=== PATIENT | male | born 1960 | race Caucasian/White ===

== ENCOUNTER → 2016-06-01 | Outpatient (CLI) | payer OTHER ==
[~2016-06-01] MED LIST: B12,B-12,B 12500 MC1 PO; CEPHALEXIN500 M1 PO; CLINDAMYCIN HC300 MG PO; DOXYCYCLINE100 M3 PO; HYDROCODONE BIT1 T11 PO; INDOMETHACIN50 MG PO; KEFLEX500 MG PO; NORCO 5-325 TA1 EACH PO; TOPCARE IBUPRO200 MG PO; ULTRAM50 MG PO
== END | disposition home or self-care (01) ==
LOC: RAD 11:25
DX: R06.09 Other forms of dyspnea (principal)

== ENCOUNTER 2016-08-09 23:00 | Emergency (ER) | payer OTHER ==
[~2016-08-09] VITALS: Ht 185.4 cm; Wt 145.1 kg
[2016-08-09] MEDS ORDERED: PROAIR HFA8.5 GM INH (23:26)
[2016-08-09] MEDS ORDERED: TAMSULOSIN HCL0.4 MG PO (23:26)
== END 2016-08-10 00:48 | disposition home or self-care (01) ==
LOC: ED 23:00
DX: M25.562 Pain in left knee (principal); Z79.899 Other long term (current) drug therapy

== ENCOUNTER 2017-01-08 18:37 | Emergency (ER) | payer OTHER ==
[~2017-01-08] VITALS: Ht 185.4 cm; Wt 149.7 kg
[~2017-01-08 18:37] MED LIST changes: +PROAIR HFA8.5 GM INH; +TAMSULOSIN HCL0.4 MG PO
[2017-01-08 19:38] LABS: BASO % 0.3 % (0.0-1.0); HEMATOCRIT 40.4 % (42.0-52.0); HEMOGLOBIN 14.1 g/dl (14.0-18.0); LYMPH # 1.2 10*3/uL (1.3-4.4); LYMPH % 10.4 % (27.0-41.0); MEAN CELL VOLUME 92.7 fl (80.0-94.0); MEAN CORPUSCULAR HGB 32.3 pg (27.0-31.0); MEAN CORPUSCULAR HGB CONC 34.9 g/dl (33.0-37.0); MEAN PLATELET VOLUME 10.8 fl (9.6-12.3); MONO # 0.9 10*3/uL (0.1-1.0); MONO % 7.5 % (3.0-9.0); NEUT # 9.6 10*3/uL (2.3-7.9); NEUT % 81.1 % (47.0-73.0); PLATELET COUNT AUTOMATED 177 10*3/uL (130-400); RED BLOOD COUNT 4.36 10*6/uL (4.50-5.90); RED CELL DISTRI WIDTH 12.8 % (0-14.5); WHITE BLOOD COUNT 11.8 10*3/uL (4.8-10.8)
[2017-01-08 19:53] LABS: BUN 15 mg/dl (7-24)
[2017-01-08 20:24] LABS: ALBUMIN 3.1 gm/dl (3.1-4.5); ALKALINE PHOSPHATASE 66 U/L (45-117); CHLORIDE 92 mmol/L (98-107); CREATININE 1.17 mg/dL (0.70-1.30); POTASSIUM 4.4 mmol/L (3.5-5.1); SGOT/AST 42 IU/L (3-35); SGPT/ALT 30 U/L (12-78); SODIUM 131 mmol/L (136-145); TOTAL PROTEIN 6.9 gm/dL (6.4-8.2)
[2017-01-08] MEDS ORDERED: ZITHROMAX250 MG PO (22:06)
[2017-01-08] MEDS ORDERED: PROAIR HFA8.5 GM INH (22:06)
== END 2017-01-08 22:59 | disposition home or self-care (01) ==
LOC: ED 18:37
PROVIDERS: Physician Assistant
DX: J18.1 Lobar pneumonia, unspecified organism (principal); R51 Headache; R42 Dizziness and giddiness; F17.200 Nicotine dependence, unspecified, uncomplicated; Z79.899 Other long term (current) drug therapy

== ENCOUNTER 2017-01-11 15:53 | Inpatient (IN) | payer OTHER ==
[~2017-01-11] VITALS: Ht 185.4 cm; Wt 148.1 kg
[~2017-01-11 15:53] MED LIST changes: +ZITHROMAX250 MG PO
[2017-01-11 16:00] VITALS: BP 147/77
[2017-01-11 17:09] LABS: BASO % 0.3 % (0.0-1.0); EOS # 0.1 10*3/uL (0.0-0.4); EOS % 0.4 % (1.0-4.0); HEMATOCRIT 39.9 % (42.0-52.0); HEMOGLOBIN 13.8 g/dl (14.0-18.0); LYMPH # 0.7 10*3/uL (1.3-4.4); LYMPH % 4.3 % (27.0-41.0); MEAN CELL VOLUME 92.1 fl (80.0-94.0); MEAN CORPUSCULAR HGB 31.9 pg (27.0-31.0); MEAN CORPUSCULAR HGB CONC 34.6 g/dl (33.0-37.0); MEAN PLATELET VOLUME 11.2 fl (9.6-12.3); MONO # 0.9 10*3/uL (0.1-1.0); MONO % 5.5 % (3.0-9.0); NEUT # 13.9 10*3/uL (2.3-7.9); NEUT % 88.5 % (47.0-73.0); PLATELET COUNT AUTOMATED 222 10*3/uL (130-400); RED BLOOD COUNT 4.33 10*6/uL (4.50-5.90); RED CELL DISTRI WIDTH 12.9 % (0-14.5); WHITE BLOOD COUNT 15.7 10*3/uL (4.8-10.8)
[2017-01-11 17:25] LABS: ALBUMIN 3.6 gm/dl (3.1-4.5); ALKALINE PHOSPHATASE 181 U/L (45-117); BUN 10 mg/dl (7-24); CHLORIDE 104 mmol/L (98-107); CREATININE 0.29 mg/dL (0.70-1.30); POTASSIUM 3.8 mmol/L (3.5-5.1); SGOT/AST 30 IU/L (3-35); SGPT/ALT 21 U/L (12-78); SODIUM 137 mmol/L (136-145); TOTAL PROTEIN 7.3 gm/dL (6.4-8.2)
[2017-01-11 17:41] VITALS: BP 125/80
[2017-01-11 18:14] VITALS: BP 128/65
--- NOTE | 2017-01-11 18:30 | NUR ---
Time: 1829 A 56 year old MALE admitted to 4E under services of ACACIA SAGE DO. Pt. arrived via stretcher from ER. Chief complaint: REDNESS SWELLING AND PAIN RIGHT LOWER LEG SINCE SUNDAY.. TAMMY PORTILLO
--- NOTE | 2017-01-11 19:52 | NUR ---
PRN ZOFRAN IV GIVEN PER PT. REQUEST C/O NAUSEA.
[2017-01-11 20:00] VITALS: BP 121/72
--- NOTE | 2017-01-11 20:10 | NUR ---
PRN ZOFRAN IV EFFECTIVE, PT. NO LONGER C/O NAUSEA.
--- NOTE | 2017-01-11 23:45 | NUR ---
CALLED INTO PT. ROOM FOR IV PULLED OUT ON ACCIDENT. NEW IV INSERTED IN RIGHT HAND WITH 20G TO CONTINUE ATB THERAPY.
[2017-01-12] VITALS: BP 113/51
[2017-01-12 06:51] LABS: BASO % 0.2 % (0.0-1.0); EOS # 0.1 10*3/uL (0.0-0.4); EOS % 0.9 % (1.0-4.0); HEMATOCRIT 35.5 % (42.0-52.0); HEMOGLOBIN 12.1 g/dl (14.0-18.0); LYMPH # 1.2 10*3/uL (1.3-4.4); LYMPH % 10.4 % (27.0-41.0); MEAN CORPUSCULAR HGB 33.1 pg (27.0-31.0); MEAN CORPUSCULAR HGB CONC 34.1 g/dl (33.0-37.0); MEAN PLATELET VOLUME 10.5 fl (9.6-12.3); MONO # 0.7 10*3/uL (0.1-1.0); MONO % 5.8 % (3.0-9.0); NEUT # 9.5 10*3/uL (2.3-7.9); NEUT % 81.9 % (47.0-73.0); PLATELET COUNT AUTOMATED 207 10*3/uL (130-400); RED BLOOD COUNT 3.66 10*6/uL (4.50-5.90); RED CELL DISTRI WIDTH 13.2 % (0-14.5); RETICULOCYTE % 0.96 % (0.50-2.50); WHITE BLOOD COUNT 11.6 10*3/uL (4.8-10.8)
[2017-01-12 07:08] LABS: ALBUMIN 2.1 gm/dl (3.1-4.5); ALKALINE PHOSPHATASE 85 U/L (45-117); CHLORIDE 102 mmol/L (98-107); CHOLESTEROL 95 mg/dL (<200); CREATININE 0.98 mg/dL (0.70-1.30); HDL CHOLESTEROL 19 mg/dl (40-60); IRON 44 ug/dL (65-175); LDL CHOLESTEROL 49 mg/dL (9-159); MAGNESIUM 2.3 mg/dL (1.5-2.1); PHOSPHOROUS 3.4 mg/dL (2.5-4.9); POTASSIUM 3.7 mmol/L (3.5-5.1); SGOT/AST 86 IU/L (3-35); SGPT/ALT 58 U/L (12-78); SODIUM 138 mmol/L (136-145); TOTAL IRON BINDING CAPACITY 198 ug/dl (250-450); TOTAL PROTEIN 6.6 gm/dL (6.4-8.2); TRIGLYCERIDES 133 mg/dl (<150); VLDL CHOLESTEROL 27 mg/dL (6-40)
[2017-01-12 07:22] LABS: BUN 21 mg/dl (7-24)
[2017-01-12 07:28] LABS: VITAMIN D, 25-HYDROXY 25.3 ng/mL (30-100)
[2017-01-12 08:00] VITALS: BP 124/67
[2017-01-12 08:07] LABS: FERRITIN 1938.2 ng/mL (22.0-322.0)
--- NOTE | 2017-01-12 08:30 | NUR ---
Speedboat Operator in to talk to patient. Patient states lives at HOME IN A TRAILOR ALONE with . There are 4 steps in the home. Physician: NO PCP Pharmacy: [facility] Home health services: NONE Patient's level of ADLs: INDEPENDENT Patient has working utilities: YES DME: NONE Follow-up physician's appointment after d/c: WILL BE MADE PRIOR TO DC Does patient want to access PORTAL?: Discharge plan HOME. JAIDEN BLISS PT STATES PRESENT INSURANCE IS LIKE A TRUST WITH VERY LITTLE FUNDS TO PAY FOR MEDICAL BILLS. WILL HAVE ANDREW AT [facility] [employer] TALK TO HIM AND SEE IF HE MIGHT QUALIFY FOR MEDICAID.
--- NOTE | 2017-01-12 08:51 | NUR ---
NIESHA OH Yolanda [id number] Please refer to the physician's history and physical for past medical history, comorbid conditions, and allergies. Diagnosis: CELLULITIS OF RIGHT LOWER EXTREMITY Lucio Score: 19,LOW OR NO RISK WOUND DESCRIPTIONS: Location of the wound: right angel Type of wound: traumatic Thickness: Full Size: 0.5cm x 0.9cm x 0.1cm Tunneling: none Undermining: none Sinus Tract: none Presence of Exudate: Serous Amount: Light Color: Yellow Odor: None Periwound Skin Appearance: Erythema Wound edges: approximated Pain (associated with wound): none at time of assessment How does patient state this happened? pt stated he hit it on the bed frame about 2 1/2 weeks ago. Location of the wound: right posterior leg Thickness: Partial Size: 0.4cm x 2.1cm x 0.1cm Tunneling: none Undermining: none Sinus Tract: none Presence of Exudate: Serous Amount: None Color: Red Odor: None Periwound Skin Appearance: Erythema Wound edges: approximated Pain (associated with wound): none at time of assessment How does patient state this happened? pt unsure how this happened he stated he noticed the entire sock was red from the blood coming from the area. His entire right leg is red up into the groin. Warm to touch. Tender to touch. Surface the patient is resting on: Isoflex SKIN PREVENTION RECOMMENDATION: 1. Pressure redistribution support surface as appropriate 2. Elevate heels 3. Remove boots/TEDS every shift and reapply 4. Head of bed 30 degrees as tolerated 5. Assess nutrition and hydration 6. Manage moisture 7. Avoid the use of containment devices while in bed 8. Use absorptive products on surfaces limit layers of linens on bed 9. Turn and reposition every 1-2 hours in bed and every 1 hour in chair as tolerated 10. Weight shifts every 15 minutes while up in chair 11. Offloading with pillows or device to keep heels elevated off bed 12. Monitor skin at least every shift 13. Inspect under medical devices twice a day WOUND TREATMENT RECOMMENDATIONS: Full thickness guideline for right angel nss, sureprep, therahoney, optifoam gentle. Partial thickness guideline for the right posterior leg nss, sureprep, therahoney, optifoam gentle.
--- NOTE | 2017-01-12 09:30 | NUR ---
PHYSICAL THERAPY PAtient at US to r/o DVT. Petra Rivera,PT
--- NOTE | 2017-01-12 09:31 | NUR ---
MESSAGE LEFT FOR ANDREW AT [facility] FOR [employer] MEDICAID.
--- NOTE | 2017-01-12 11:50 | NUR ---
Message left on wound care centers answering service that there is a consult for Dr. Herzog.
[2017-01-12 12:00] VITALS: BP 127/70
--- NOTE | 2017-01-12 12:30 | NUR ---
Notified by forward air controller/air officer that wound care called and states that Dr. Herzog is not in today.
--- NOTE | 2017-01-12 12:32 | NUR ---
Dr. Crocker notified that Dr. Herzog is not in on fridays, she will return Sunday.
--- NOTE | 2017-01-12 13:01 | NUR ---
PHYSICAL THERAPY APtient reports he has no PT needs. Reports (I) all mobility. "Just stiff from edema and wounds." Encouraged patient to utilize wh walker prn to assist with wound/edema. Thank you for this referral. Petra Rivera,PT
[2017-01-12 16:00] VITALS: BP 146/83
[2017-01-12 20:00] VITALS: BP 135/72
--- NOTE | 2017-01-12 22:09 | NUR ---
DR. ALBERTS NOTIFIED OF CRITICAL VANCO TROUGH OF 20.1.
[2017-01-13] VITALS: BP 129/66
--- NOTE | 2017-01-13 00:42 | NUR ---
PATIENT RESTING IN BED WITH EYES CLOSED. NO SIGNS OR SYMPTOMS OF DISTRESS NOTED. WILL CONTINUE TO MONITOR. CALL LIGHT IN REACH.
[2017-01-13 07:05] LABS: BASO # 0.1 10*3/uL (0.0-0.1); BASO % 0.4 % (0.0-1.0); EOS # 0.2 10*3/uL (0.0-0.4); EOS % 1.9 % (1.0-4.0); HEMOGLOBIN 11.2 g/dl (14.0-18.0); LYMPH # 1.4 10*3/uL (1.3-4.4); LYMPH % 12.7 % (27.0-41.0); MEAN CELL VOLUME 99.1 fl (80.0-94.0); MEAN CORPUSCULAR HGB 32.7 pg (27.0-31.0); MEAN CORPUSCULAR HGB CONC 32.9 g/dl (33.0-37.0); MEAN PLATELET VOLUME 9.9 fl (9.6-12.3); MONO # 0.7 10*3/uL (0.1-1.0); MONO % 6.6 % (3.0-9.0); NEUT # 8.7 10*3/uL (2.3-7.9); NEUT % 77.8 % (47.0-73.0); PLATELET COUNT AUTOMATED 250 10*3/uL (130-400); RED BLOOD COUNT 3.43 10*6/uL (4.50-5.90); RED CELL DISTRI WIDTH 13.3 % (0-14.5); WHITE BLOOD COUNT 11.2 10*3/uL (4.8-10.8)
[2017-01-13 08:00] VITALS: BP 139/81
--- NOTE | 2017-01-13 10:56 | NUR ---
DR MEDINA CALLED ABOUT CONSULT - HE WOULD LIKE THE RESIDENT WITH THE [facility] TO CALL HIM - DR TAMAYO MADE AWARE OF REQUEST
--- NOTE | 2017-01-13 11:12 | NUR ---
SPOKE WITH THE PATIENT WHO IS ALERT & ORIENTED. DENIES TAKING ANY MEDICATION AT ALL. MED REC UPDATED
--- NOTE | 2017-01-13 11:16 | NUR ---
DR LUKE CALLED AND INFORMED THAT THE PATIENT IS C/O YEASTY ITCH IN THE GROIN AREA & IS REQUESTING SOMETHING FOR IT.
[2017-01-13 12:00] VITALS: BP 147/86
--- NOTE | 2017-01-13 14:02 | NUR ---
IV ANTIBIOTICS COMPLETED, SITE ASYMPTOMATIC. NYSTATIN POWDER APPLIED - MINIMAL REDNESS AT TIP OF PENIS BUT NO YEASTY OR EXCORIATIONS FOUND ELSE WHERE - PER THE PATIENT HIS PROSTRATE IS ENLARGED AND HE OCC DRIPS WHICH CAUSES IRRITATION & ITCHING
[2017-01-13 16:00] VITALS: BP 123/52
--- NOTE | 2017-01-13 16:10 | NUR ---
PT AWAKE IN BED WATCHING TV. NO C/O VOICED. DRSGS TO RLE DRY AND INTACT.
[2017-01-13 20:00] VITALS: BP 141/78
--- NOTE | 2017-01-13 21:54 | NUR ---
NYSTOP APPLIED TO TIP OF PENIS ORDERED. VANCO INFUSING WITHOUT DIFF.
[2017-01-14] VITALS: BP 149/71
--- NOTE | 2017-01-14 00:32 | NUR ---
0000 RESTING IN BE WITH EYES CLOSED. APPEARS TO BE SLEEPING. AWAKENED FOR VS. HEP JAIRO INTACT. DRSG D/I R TORRES. R LEG REMAINS EDEMATOUS AND RED IN APPEARANCE.
--- NOTE | 2017-01-14 04:05 | NUR ---
REMAINS SLEEPING WITHOUT DISTRESS.
--- NOTE | 2017-01-14 06:05 | NUR ---
AWAKENED FOR AM MEDS. PAIN MED OFFERED. DOES NOT WANT. NO DISTRESS NOTED.
[2017-01-14 08:00] VITALS: BP 139/84
--- NOTE | 2017-01-14 09:59 | NUR ---
Shift chart check completed.
[2017-01-14 12:00] VITALS: BP 129/76
[2017-01-14] MEDS ORDERED: Vitamin D PO (12:59)
[2017-01-14] MEDS ORDERED: FEROSUL325 MG PO (12:59)
[2017-01-14] MEDS ORDERED: VANCOMYCIN2 GM/500 M IV (12:59)
[2017-01-14] MEDS ORDERED: DUONEB 3 MG/3 ML3 M1 NEB (12:59)
[2017-01-14] MEDS ORDERED: NYSTOP60 GM T (12:59)
--- NOTE | 2017-01-14 15:00 | NUR ---
PATIENT REFUSED D/C WOUND PICTURES. HE STATED THAT THEY WERE LEAKING TOO BAD AND WE JUST CHANGED THEM HE DID NOT WANT THEM UNDRESSED AGAIN.
--- NOTE | 2017-01-14 15:40 | NUR ---
PATIENT LEFT VIA [facility] FOR [facility]
[2017-01-14 16:00] VITALS: BP 160/73
--- NOTE | 2017-01-14 16:03 | NUR ---
REPORT CALLED TO [facility]
== END 2017-01-14 15:40 | disposition short-term general hospital (02) | DRG 602 ==
LOC: ED 15:53 → EDHOLD 17:32 → 4E 17:32 → EDHOLD 17:38 → 4E 17:54
PROVIDERS: Internal Medicine; Nurse Practitioner; ADMIT Internal Medicine
DX: L03.115 Cellulitis of right lower limb (principal); J18.9 Pneumonia, unspecified organism; E43 Unspecified severe protein-calorie malnutrition; Z68.41 Body mass index [BMI] 40.0-44.9, adult; M10.9 Gout, unspecified; E66.01 Morbid (severe) obesity due to excess calories; R19.7 Diarrhea, unspecified; D72.829 Elevated white blood cell count, unspecified; M62.89 Other specified disorders of muscle; R74.0 Nonspecific elevation of levels of transaminase and lactic acid dehydrogenase [LDH]; M40.209 Unspecified kyphosis, site unspecified; M40.04 Postural kyphosis, thoracic region; D53.9 Nutritional anemia, unspecified; Z22.322 Carrier or suspected carrier of Methicillin resistant Staphylococcus aureus; Z87.891 Personal history of nicotine dependence; Z83.3 Family history of diabetes mellitus; Z82.3 Family history of stroke

== ENCOUNTER 2017-02-08 20:09 | Inpatient (IN) | payer OTHER ==
[~2017-02-08] VITALS: Ht 185.4 cm; Wt 152.5 kg
[~2017-02-08 20:09] MED LIST changes: +DUONEB 3 MG/3 ML3 M1 NEB; +FEROSUL325 MG PO; +NYSTOP60 GM T; +VANCOMYCIN2 GM/500 M IV; +Vitamin D PO
[2017-02-08 20:24] VITALS: BP 157/91
[2017-02-08 20:57] LABS: BASO # 0.1 10*3/uL (0.0-0.1); BASO % 0.7 % (0.0-1.0); EOS # 0.3 10*3/uL (0.0-0.4); EOS % 4.6 % (1.0-4.0); HEMATOCRIT 38.1 % (42.0-52.0); HEMOGLOBIN 12.7 g/dl (14.0-18.0); LYMPH # 1.8 10*3/uL (1.3-4.4); LYMPH % 24.3 % (27.0-41.0); MEAN CELL VOLUME 95.7 fl (80.0-94.0); MEAN CORPUSCULAR HGB 31.9 pg (27.0-31.0); MEAN CORPUSCULAR HGB CONC 33.3 g/dl (33.0-37.0); MEAN PLATELET VOLUME 9.3 fl (9.6-12.3); MONO # 0.5 10*3/uL (0.1-1.0); MONO % 6.5 % (3.0-9.0); NEUT # 4.6 10*3/uL (2.3-7.9); NEUT % 63.5 % (47.0-73.0); PLATELET COUNT AUTOMATED 209 10*3/uL (130-400); RED BLOOD COUNT 3.98 10*6/uL (4.50-5.90); RED CELL DISTRI WIDTH 13.2 % (0-14.5); WHITE BLOOD COUNT 7.2 10*3/uL (4.8-10.8)
[2017-02-08 21:08] LABS: ACT PARTIAL THROMBO TIME 23.1 SECONDS (20.8-31.5)
[2017-02-08 21:11] LABS: ALBUMIN 3.6 gm/dl (3.1-4.5); ALKALINE PHOSPHATASE 62 U/L (45-117); BUN 13 mg/dl (7-24); CHLORIDE 104 mmol/L (98-107); POTASSIUM 3.9 mmol/L (3.5-5.1); SGOT/AST 17 IU/L (3-35); SGPT/ALT 21 U/L (12-78); SODIUM 141 mmol/L (136-145); TOTAL PROTEIN 7.5 gm/dL (6.4-8.2)
--- NOTE | 2017-02-08 21:44 | NUR ---
PAIN HAS DECREASED.
--- NOTE | 2017-02-08 22:00 | NUR ---
PT AWARE OF ADMITTANCCE AND WHY. PT GIVEN BLANKET AND PILLOW.
[2017-02-08 22:55] VITALS: BP 155/87
--- NOTE | 2017-02-08 22:55 | NUR ---
[facility] under the services of PAMELA River DO with a diagnosis of CELLULITIS RIGHT LOWER EXTREMITY. Chief complaint is SWELLING AND REDNESS TO RIGHT LOWER EXTREMITY . Patient arrived via ambulatory from ER. Monitor applied. Initial assessment completed. Vital signs taken and recorded. PAMELA RIVER DO notified of admission to the unit. Orders received. See assessment for past medical history, medications and allergies. Patient and/or family oriented to unit. [address] visitation policy reviewed. Clothing/patient valuable form completed. SCOTT MARROQUIN
[2017-02-09] VITALS: BP 164/82; BP 178/92
--- NOTE | 2017-02-09 00:08 | NUR ---
SPOKE WITH DR. BARKER AT THIS TIME. DR. BARKER AWARE THAT IS PATIENT HAS A WOUND THAT IS NON-DRAINING AND SCABBED TO RIGHT LOWER EXTREMITY. ALSO INFORMED HIM THAT THIS PATIENT DOES NOT TAKE ANY HOME MEDICATIONS.
--- NOTE | 2017-02-09 06:08 | NUR ---
PATIENT RESTING IN BED WITH EYES CLOSED BILATERALLY. RESPIRATIONS ARE EASY AND REGULAR. NO S/S OF PAIN OR DISCOMFORT. CALL LIGHT IS IN REACH.
--- NOTE | 2017-02-09 06:19 | NUR ---
CALLED DR. KOO'S ANSWERING SERVICE AT THIS TIME TO MAKE HER AWARE OF CONSULTATION. LEFT MESSAGE AND REASON FOR CONSULTATION. AWAITING RETURN CALL.
[2017-02-09 06:21] LABS: BASO % 0.4 % (0.0-1.0); EOS # 0.3 10*3/uL (0.0-0.4); HEMATOCRIT 35.6 % (42.0-52.0); HEMOGLOBIN 11.8 g/dl (14.0-18.0); LYMPH # 1.2 10*3/uL (1.3-4.4); LYMPH % 16.7 % (27.0-41.0); MEAN CELL VOLUME 96.7 fl (80.0-94.0); MEAN CORPUSCULAR HGB 32.1 pg (27.0-31.0); MEAN CORPUSCULAR HGB CONC 33.1 g/dl (33.0-37.0); MEAN PLATELET VOLUME 9.2 fl (9.6-12.3); MONO # 0.5 10*3/uL (0.1-1.0); MONO % 6.6 % (3.0-9.0); NEUT # 5.1 10*3/uL (2.3-7.9); NEUT % 71.9 % (47.0-73.0); PLATELET COUNT AUTOMATED 161 10*3/uL (130-400); RED BLOOD COUNT 3.68 10*6/uL (4.50-5.90); RED CELL DISTRI WIDTH 13.3 % (0-14.5); WHITE BLOOD COUNT 7.1 10*3/uL (4.8-10.8)
[2017-02-09 06:46] LABS: BUN 13 mg/dl (7-24); CHLORIDE 105 mmol/L (98-107); CHOLESTEROL 174 mg/dL (<200); CREATININE 0.89 mg/dL (0.70-1.30); HDL CHOLESTEROL 42 mg/dl (40-60); LDL CHOLESTEROL 104 mg/dL (9-159); POTASSIUM 4.1 mmol/L (3.5-5.1); SODIUM 140 mmol/L (136-145); TRIGLYCERIDES 139 mg/dl (<150); VLDL CHOLESTEROL 28 mg/dL (6-40)
[2017-02-09 07:05] LABS: ACT PARTIAL THROMBO TIME 24.5 SECONDS (20.8-31.5)
--- NOTE | 2017-02-09 07:56 | NUR ---
Shift chart check completed.
[2017-02-09 08:00] VITALS: BP 148/72
--- NOTE | 2017-02-09 08:43 | NUR ---
[employer] APPRAISER VS. PT OFF FLOOR AT THIS TIME.
[2017-02-09 08:53] LABS: VITAMIN D, 25-HYDROXY 29.4 ng/mL (30-100)
--- NOTE | 2017-02-09 10:24 | NUR ---
PHYSICAL THERAPY PAtient reports he is 100% (I) and has no PT needs. Thank you for this referral. Petra Rivera,PT
--- NOTE | 2017-02-09 10:43 | NUR ---
SPOKE WITH DR TAMAYO ABOUT WOUND ORDERS. SHE ADVISED TO LEAVE IT OPEN TO AIR. APPLIED PRANAV HOSE PER HER ORDER.
[2017-02-09 12:00] VITALS: BP 150/74
--- NOTE | 2017-02-09 12:25 | NUR ---
NIESHA OH [id number] Please refer to the physician's history and physical for past medical history, comorbid conditions, and allergies. Diagnosis: CELLULITIS OF RIGHT LOWER EXTREMITY Lucio Score: 22,LOW OR NO RISK WOUND DESCRIPTIONS: Location of the wound: right posterior amelia Thickness: Full Size: 7.0cm x 4.3cm x0.1cm Tunneling: none Undermining: none Sinus Tract: none Presence of Exudate: Serous per pt none at time of assessment Amount: Light per pt none at time of assessment Color: Yellow, brown, red Odor: None Periwound Skin Appearance: Hot Wound edges: approximated Pain (associated with wound): none at time of assessment How does patient state this happened? pt stated it started as a blister two weeks ago and was transfered to [facility] and the area is slowly improving Pedal pulse present. +2 edema noted to BLE. Kwadwo hose in place per md order. Surface the patient is resting on: Isoflex SKIN PREVENTION RECOMMENDATION: 1. Pressure redistribution support surface as appropriate 2. Elevate heels 3. Remove boots/TEDS every shift and reapply 4. Head of bed 30 degrees as tolerated 5. Assess nutrition and hydration 6. Manage moisture 7. Avoid the use of containment devices while in bed 8. Use absorptive products on surfaces limit layers of linens on bed 9. Turn and reposition every 1-2 hours in bed and every 1 hour in chair as tolerated 10. Weight shifts every 15 minutes while up in chair 11. Offloading with pillows or device to keep heels elevated off bed 12. Monitor skin at least every shift 13. Inspect under medical devices twice a day WOUND TREATMENT RECOMMENDATIONS: Full thickness guidelines cleanse with nss and apply sureprep around wound cover wound bed with therahoney and cover with non adhert dressing the wrap with kerlix.
--- NOTE | 2017-02-09 12:40 | NUR ---
Spoke with Dr. Cross regarding wound care recommendations.
[2017-02-09 16:00] VITALS: BP 155/90
--- NOTE | 2017-02-09 18:38 | NUR ---
PATIENT STATED PRANAV HOSE WERE CUTTING INTO HIS ANKLE. REMOVED THEM.
[2017-02-09 20:00] VITALS: BP 156/71
--- NOTE | 2017-02-09 20:48 | NUR ---
PATIENT RESTING IN BED WITH NO NEEDS MADE. BED IN LOWEST POSITION, CALL LIGHT IN REACH
--- NOTE | 2017-02-09 21:57 | NUR ---
24 HR chart check completed.
--- NOTE | 2017-02-09 23:22 | NUR ---
PATIENT DRESSING TO RIGHT LEG REINFORCED WITH NEW KERLIX. PATIENT REFUSING PRANAV HOSE AT THIS TIME. BED IN LOWEST POSITION, CALL LIGHT IN REACH
[2017-02-10] VITALS: BP 152/76
--- NOTE | 2017-02-10 02:54 | NUR ---
PATIENT RESTING IN BED WITH NO S/S OF DISTRESS. BED IN LOWEST POSITION, CALL LIGTH IN REACH
[2017-02-10 08:00] VITALS: BP 130/78
--- NOTE | 2017-02-10 08:07 | NUR ---
PATIENT RESTING IN BED. NO COMPLAINTS VOICED.
--- NOTE | 2017-02-10 10:00 | NUR ---
AM MEDS TAKEN.
[2017-02-10] MEDS ORDERED: BACTRIM 400-801 EACH PO (11:06)
[2017-02-10] MEDS ORDERED: KEFLEX500 M1 PO (11:06)
[2017-02-10] MEDS ORDERED: VITAMIN D31000 UNI1 PO (11:06)
[2017-02-10] MEDS ORDERED: B12,B-12,B 12500 MC1 PO (11:06)
--- NOTE | 2017-02-10 11:52 | NUR ---
IV REMOVED FOR DISCHARGE.
--- NOTE | 2017-02-10 11:58 | NUR ---
Discharge instructions reviewed with patient/family. Patient receptive and verbalizes understanding. Follow-up care arranged. Written instructions given to patient/family. VINAY GIBBS
== END 2017-02-10 11:58 | disposition home or self-care (01) | DRG 602 ==
LOC: ED 20:09 → 5E 22:07 → EDHOLD 22:07 → 5E 22:42
PROVIDERS: Emergency Medicine; Internal Medicine; ADMIT Internal Medicine
DX: L03.115 Cellulitis of right lower limb (principal); E43 Unspecified severe protein-calorie malnutrition; Z68.41 Body mass index [BMI] 40.0-44.9, adult; E66.01 Morbid (severe) obesity due to excess calories; I10 Essential (primary) hypertension; M10.9 Gout, unspecified; G25.81 Restless legs syndrome; R73.9 Hyperglycemia, unspecified; D53.9 Nutritional anemia, unspecified; R74.0 Nonspecific elevation of levels of transaminase and lactic acid dehydrogenase [LDH]; I87.2 Venous insufficiency (chronic) (peripheral); Z22.322 Carrier or suspected carrier of Methicillin resistant Staphylococcus aureus; Z87.891 Personal history of nicotine dependence; Z83.3 Family history of diabetes mellitus; Z82.3 Family history of stroke; Z82.49 Family history of ischemic heart disease and other diseases of the circulatory system